=== PATIENT | male | born 1975 | race Caucasian/White ===

== ENCOUNTER → 2022-04-29 08:39 | Outpatient (BNVA) | payer OTHER, SELFPAY | PROVIDERS: PCP Family Medicine; Visit Provider Surgery | DX: K42.9 Umbilical hernia without obstruction or gangrene (principal); Z12.11 Encounter for screening for malignant neoplasm of colon | CPT/HCPCS: 99203 ==

== ENCOUNTER 2022-05-18 05:30 | Day surgery (SDC) | payer OTHER, SELFPAY ==
[2022-05-14 09:42] VITALS: BMI 30.5
--- NOTE | 2022-05-18 05:54 | W.PM.OPSUD ---
Surgery/Procedure H&P Update DATE OF PROCEDURE: May 18, 2022 DATE H&P PERFORMED: 04/29/22 H&P UPDATE INFORMATION: I have reviewed H&P completed within last 30 days, I have examined patient prior to procedure and No changes to prior documentation PREOP DIAGNOSIS: Screening colonoscopy PRIMARY INDICATION FOR PROCEDURE: The same PLANNED PROCEDURE: Operation Date: 05/18/22 07:30 Proposed Procedures p Colonoscopy 76359,Z12.00(Not Applicable) - Horacio Pozo MD
[2022-05-18 06:07] VITALS: BP 153/83; PULSE 79; RESP 18; TEMP 36.7; O2SAT 96
[2022-05-18] MEDS: sodium chloride 0.9% 1,000 ML 30 ML IV (06:11)
--- NOTE | 2022-05-18 07:14 | ANES.PREANE2 ---
Pre-Anesthetic Assessment Height/Weight: Height 1.83 m Weight 102.058 kg Temp Pulse Resp BP Pulse Ox O2 Del Method 98.0 F 79 18 153/83 96 05/18/22 06:07 05/18/22 06:07 05/18/22 06:07 05/18/22 06:07 05/18/22 06:07 05/18/22 06:07 Preop Diagnosis: Screening colonoscopy Operation Date: 05/18/22 07:30 Proposed Procedures p Colonoscopy 55774,Z12.00(Not Applicable) - Horacio Pozo MD Familial anesthetic complications: none Was Beta Mariama taken within 24 hours: Yes Was Clonidine taken within 24 hours: N/A Last intake: Intake Last Liquid Date 05/17/22 Last Liquid Time 22:00 Last Solid Date 05/17/22 Last Solid Time 03:00 Social No alcohol and No tobacco Exam alert, oriented x 3, clear to auscultation bilaterally and regular rate & rhythm Airway Submandibular: within normal limits Cervical ROM: within normal limits Mallampati: Class II Dentition: full History/ROS No significant history except as noted Pulmonary None reported CV/HEM Hypertension None reported Hepatic None reported GI None reported Metabolic Diabetes Mellitus (type II) Musc/skel None reported Neuropsych None reported Anesthetic Plan ASA status: 2 Anesthesia: Anesthesia Evaluation and MAC Risk of > 500 ml blood loss (7ml/kg in children): No Medications/Allergies Home Medications Medication Instructions Recorded Confirmed Last Taken Type amlodipine 5 mg tablet 5 mg PO DAILY 04/29/22 05/18/22 05/17/22 History atorvastatin 40 mg tablet 20 mg PO DAILY 04/29/22 05/18/22 05/17/22 History calcium-vit D3-ferrous fumarate 1 tab PO DAILY 04/29/22 05/18/22 05/17/22 History 600 mg-125 unit-18 mg tablet glimepiride 4 mg tablet 2 mg PO DAILY 04/29/22 05/18/22 05/17/22 History hydrochlorothiazide 25 mg tablet 12.5 mg PO DAILY 04/29/22 05/18/22 05/17/22 History metformin 500 mg tablet 500 mg PO BID 04/29/22 05/18/22 05/17/22 History metoprolol tartrate 100 mg tablet 50 mg PO BID 04/29/22 05/18/22 05/18/22 History omega-3 fatty acids 1,000 mg 1,000 mg PO BID 04/29/22 05/18/22 05/17/22 History capsule Allergies Allergy/AdvReac Type Severity Reaction Status Date / Time No Known Allergies Allergy Verified 05/18/22 06:03 Current Medications Generic Name Dose Route Start Last Admin Trade Name Freq PRN Reason Stop Dose Admin Sodium Chloride 1,000 mls @ 30 mls/hr 05/18/22 06:00 05/18/22 06:11 Sodium Chloride 0.9% IV 05/19/22 05:59 30 mls/hr .Q24H PRANAV Administration PFSH Anesthesia Family History Other Cancer Diabetes Hypertension Social History Smoking and tobacco status: former smoker Data Anesthesia Cardiac Studies: No Data to Display
[2022-05-18 07:57] VITALS: BP 93/64; PULSE 69; RESP 14; TEMP 36.1; O2SAT 96
--- NOTE | 2022-05-18 08:01 | ANE.PACU2 ---
Inpatient post-anesthesia follow up: Airway intact: Yes Vital signs: Temperature 98.0 F Pulse Rate 79 Respiratory Rate 18 Blood Pressure 153/83 Pulse Oximetry 96 Oxygen Delivery Me thod Room Air Oxygen Flow Rate Fraction of Inspir ed Oxygen Hydration adequate: Yes Nausea and vomiting: No Pain level: 0 Mental status: Baseline
[2022-05-18 08:07] VITALS: BP 106/59; PULSE 74; RESP 15; O2SAT 95
== END 2022-05-18 08:19 | disposition home or self-care (01) ==
PROVIDERS: PCP Family Medicine; Visit Provider Surgery
PROC: 0DJD8ZZ Inspection of Lower Intestinal Tract, Via Natural or Artificial Opening Endoscopic (ICD-10-PCS; CPT 45378; principal; 2022-05-18 07:30)
DX: Z12.11 Encounter for screening for malignant neoplasm of colon (principal); K57.30 Diverticulosis of large intestine without perforation or abscess without bleeding; K63.5 Polyp of colon; I10 Essential (primary) hypertension; E11.9 Type 2 diabetes mellitus without complications; Z79.84 Long term (current) use of oral hypoglycemic drugs; Z87.891 Personal history of nicotine dependence
CPT/HCPCS: 45385; 88305; J2704; J7030

== ENCOUNTER → 2022-05-27 07:20 | Outpatient (BNVA) | payer OTHER, SELFPAY | PROVIDERS: PCP Family Medicine; Visit Provider Surgery | DX: Z09 Encounter for follow-up examination after completed treatment for conditions other than malignant neoplasm (principal); K57.31 Diverticulosis of large intestine without perforation or abscess with bleeding; K63.5 Polyp of colon | CPT/HCPCS: 99213 ==

== ENCOUNTER → 2024-04-17 07:34 | Outpatient (BNVA) | payer OTHER, SELFPAY | PROVIDERS: PCP Family Medicine; Visit Provider Podiatrist Foot & Ankle Surgery | DX: L60.3 Nail dystrophy (principal); E11.69 Type 2 diabetes mellitus with other specified complication; Z79.84 Long term (current) use of oral hypoglycemic drugs | CPT/HCPCS: 99203 ==

== ENCOUNTER → 2024-05-24 07:39 | Outpatient (BNVA) | payer OTHER, SELFPAY | PROVIDERS: PCP Family Medicine; Visit Provider Podiatrist Foot & Ankle Surgery | DX: L60.3 Nail dystrophy (principal); E11.42 Type 2 diabetes mellitus with diabetic polyneuropathy; Z79.84 Long term (current) use of oral hypoglycemic drugs | CPT/HCPCS: 36415; 80053; 99213 ==